=== PATIENT | female | born 1990 | race Caucasian/White ===

== ENCOUNTER 2018-02-05 17:10 | Inpatient (IN) | payer OTHER ==
[~2018-02-05] VITALS: Ht 172.7 cm; Wt 90.3 kg
[2018-02-05 17:18] VITALS: BP 166/104
[2018-02-05] MEDS ORDERED: BIRTH CONTROL PO (17:21)
[2018-02-05] MEDS ORDERED: PROAIR HFA8.5 GM INH (17:21)
[2018-02-05] MEDS ORDERED: AZITHROMYCIN 2250 MG PO (17:21)
[2018-02-05 18:08] LABS: ABSOLUTE LYMPHOCYTES 1.1 thou/uL (0.8-5.3); ABSOLUTE MONOCYTES 0.5 thou/uL (0.0-1.2); ABSOLUTE NEUTROPHILS 6.5 thou/uL (1.6-8.1); BASOPHILS 0.3 %; EOSINOPHILS 0.1 %; HEMATOCRIT 35.8 % (37.0-47.0); HEMOGLOBIN 12.4 gm/dL (12.0-15.0); LYMPHOCYTES 13.5 %; MCH 30.2 pg (26.0-34.0); MCHC 34.7 g/dL (28.0-37.0); MCV 87.3 fL (80.0-100.0); MONOCYTES 5.8 %; MPV 7.6 fl. (7.2-11.1); NUCLEATED RBCS 0 /100WBC; PLATELET COUNT* 305 thou/uL (150-400); POLYS 80.3 %; RDW-CV 12.8 % (10.5-14.5); WBC 8.1 thou/uL (4.0-11.0)
[2018-02-05 18:17] LABS: ANION GAP 11 mmol/L (7-16); BUN 4 mg/dL (7-18); CALCIUM 8.4 mg/dL (8.5-10.1); CHLORIDE 99 mmol/L (98-107); CO2 29 mmol/L (21-32); CREATININE 0.9 mg/dL (0.6-1.3); GLUCOSE 121 mg/dL (70-99); SODIUM 139 mmol/L (136-145)
[2018-02-05 18:24] LABS: ALBUMIN 2.7 g/dL (3.4-5.0); ALKALINE PHOSPHATASE 116 U/L (46-116); SGOT 42 U/L (15-37); SGPT 78 U/L (30-65); TOTAL BILIRUBIN 0.4 mg/dL (<0.1-1.0); TOTAL PROTEIN 7.2 g/dL (6.4-8.2); TROPONIN-I LEVEL <0.06 ng/mL (<0.06)
[2018-02-05 18:25] LABS: POTASSIUM 2.7 mmol/L (3.5-5.1)
[2018-02-05 20:48] LABS: BE 0.4 mmol/L (-2 to +3); HCO3 23.4 mmol/L (22.0-26.0); PCO2 32.3 mmHg (35.0-45.0); pH 7.477 (7.340-7.450)
[2018-02-05 21:00] VITALS: BP 130/81
[2018-02-05 21:08] VITALS: BP 132/81
[2018-02-05 22:00] VITALS: BP 130/85
[2018-02-05 23:00] VITALS: BP 130/86
[2018-02-06] VITALS (18 sets, daily range): BP systolic 118–146; BP diastolic 80–101
[2018-02-06 05:13] LABS: HEMATOCRIT 36.1 % (37.0-47.0); HEMOGLOBIN 12.4 gm/dL (12.0-15.0); MCH 30.1 pg (26.0-34.0); MCHC 34.3 g/dL (28.0-37.0); MCV 87.6 fL (80.0-100.0); MPV 7.5 fl. (7.2-11.1); RBC 4.13 mil/uL (4.20-5.00); RDW-CV 12.7 % (10.5-14.5); WBC 5.7 thou/uL (4.0-11.0)
[2018-02-06 05:24] LABS: ALBUMIN 2.5 g/dL (3.4-5.0); CALCIUM 8.4 mg/dL (8.5-10.1); CREATININE 0.8 mg/dL (0.6-1.3); MAGNESIUM 2.2 mg/dL (1.8-2.4); POTASSIUM 3.8 mmol/L (3.5-5.1); TOTAL BILIRUBIN 0.3 mg/dL (<0.1-1.0); TOTAL PROTEIN 6.9 g/dL (6.4-8.2)
--- NOTE | 2018-02-06 10:32 | EKG ---
[place] [address] ELECTROCARDIOGRAM REPORT Name: HAI SEGUNDO Room: [address] IN [facility].#: [id number] Admission: 02/05/18 Attend Phys: Abisai Worthington MD Discharge: Date of : 86 Report #: [id number] THIS REPORT FOR: //name// [facility] ED Test Date: 2018-02-05 Test Time: 17:34:20 Pat Name: HAI SEGUNDO Department: Room: [facility] Gender: F [employer] Officer: [place] : 1990 Requested By: Joseluis Bynum Order Number: [id number] : Parveen Wong Measurements Intervals [place] Rate: 111 P: 51 NV: 120 QRS: 64 QRSD: 87 T: 8 QT: 329 QTc: 447 Interpretive Statements Sinus tachycardia Borderline T wave abnormalities No previous ECG available for comparison Electronically Signed On 02-06-2018 10:31:56 WOOD FLOORING SPECIALIST by Parveen Wong [email or web address] <ELECTRONICALLY SIGNED> By: Parveen Wong MD, [facility] 02/06/18 1031 1734 173 Parveen Wong MD, FACC /EPI
[2018-02-06 15:15] LABS: URINE BILIRUBIN NEGATIVE (Negative); URINE BLOOD TRACE (Negative); URINE CLARITY CLEAR; URINE COLOR YELLOW; URINE GLUCOSE-RANDOM NEGATIVE (Negative); URINE KETONES NEGATIVE (Negative); URINE LEUKOCYTES-REFLEX NEGATIVE (Negative); URINE NITRITE-REFLEX NEGATIVE (Negative); URINE PROTEIN NEGATIVE (Negative); URINE UROBILINOGEN 0.2 E.U./dl (0.2-1.0)
[2018-02-06 20:45] LABS: CALCIUM 8.8 mg/dL (8.5-10.1); CREATININE 0.8 mg/dL (0.6-1.3)
[2018-02-07] VITALS (12 sets, daily range): BP systolic 130–167; BP diastolic 74–101
[2018-02-07 04:40] LABS: HEMATOCRIT 37.9 % (37.0-47.0); HEMOGLOBIN 12.9 gm/dL (12.0-15.0); MCH 30.7 pg (26.0-34.0); MCHC 34.1 g/dL (28.0-37.0); MPV 8.1 fl. (7.2-11.1); NUCLEATED RBCS 0 /100WBC; PLATELET COUNT* 344 thou/uL (150-400); RBC 4.21 mil/uL (4.20-5.00); RDW-CV 13.3 % (10.5-14.5); WBC 7.6 thou/uL (4.0-11.0)
[2018-02-07 05:18] LABS: ALBUMIN 2.7 g/dL (3.4-5.0); CALCIUM 8.6 mg/dL (8.5-10.1); CREATININE 0.9 mg/dL (0.6-1.3); MAGNESIUM 1.8 mg/dL (1.8-2.4); POTASSIUM 4.1 mmol/L (3.5-5.1); TOTAL BILIRUBIN 0.2 mg/dL (<0.1-1.0); TOTAL PROTEIN 6.7 g/dL (6.4-8.2)
[2018-02-07 06:15] LABS: ABSOLUTE LYMPHOCYTES 0.8 thou/uL (0.8-5.3); ABSOLUTE MONOCYTES 0.2 thou/uL (0.0-1.2); ABSOLUTE NEUTROPHILS 6.6 thou/uL (1.6-8.1); GIANT PLATELETS OCCASIONAL; METAMYELOCYTES 1 %; PLATELET ESTIMATE ADEQUATE
[2018-02-07 06:16] LABS: TOXIC GRANULATION 3+
[2018-02-07 06:17] LABS: POLYCHROMASIA 1+
--- NOTE | 2018-02-07 07:41 | CON ---
[address] [address] CONSULTATION Name: HAI SEGUNDO Room: [address] IN ..#: [id number] Admission: 02/05/18 Attend Phys: Abisia Worthington MD Discharge: Date of : 86 Report #: [id number] THIS REPORT FOR: //name// CC: [facility] physician/PCP Abisai Worthington DATE OF SERVICE: 02/06/2018 PULMONARY CONSULTATION PRIMARY CARE PHYSICIAN: She has no primary care physician. HOSPITALIST: Alessandro Hinds M.D. PATIENT LOCATION: She is admitted to the ICU on 02/05/2018. She is in ICU bed 7. INDICATION FOR CONSULTATION: Viral pneumonia and dyspnea. CLINICAL SUMMARY: The patient is a 28-year-old female, nonsmoker, who has had a 10-day history of cough and cold. Her son has been sick at home. He was seen by his terminal press operator and just finished taken some antibiotics 3-4 days. Supposedly, he had early pneumonia. The patient has been sick for the last 7-10 days with cough. She had a mild sore throat. She denies any myalgias. She did not get a flu shot. She has not had a pneumonia vaccine. The patient was seen in the [facility]gent [facility]. O2 sats were 91% at that time. Supposedly, a chest x-ray showed interstitial infiltrates then. She was seen in the Emergency Room yesterday afternoon because she was more short of breath and wheezing and her sats were 88% at that time. She was placed on 2 liters and a BiPAP. She kept on the BiPAP for 2 hours and then was discontinued off the BiPAP. She is now doing well on 2 liters and is coughing up some [place] sputum. She has not had a fever. She feels like she is getting a better breath. She took inhalers when she was home as a young child for some mild asthma. She has not taken any inhalers recently. She is a nonsmoker. PAST MEDICAL HISTORY: Otherwise, unremarkable. She has been a healthy young female. ALLERGIES: SHE HAS ALLERGIES OR INTOLERANCE TO PENICILLINS. MEDICATIONS: Her outpatient medications included an albuterol inhaler, she was given yesterday and a Zithromax Dameon, she took 2 tablets yesterday. FAMILY HISTORY: Negative for premature cardiopulmonary disease. SOCIAL HISTORY: Nonsmoker, nondrinker. 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 [address] CONSULTATION Name: HAI SEGUNDO Corry Room: [address]#: [id number] Admission: 02/05/18 Attend Phys: Abisai Worthington MD Discharge: Date of : 86 Report #: [id number] 10-year-old son at home. No recent travel or exposure. REVIEW OF SYSTEMS: A 14-point review of systems reviewed and negative, except for pertinent positives noted in the HPI. PHYSICAL EXAMINATION: GENERAL: This is a pleasant 28-year-old female, in no acute distress. She is on 2 liters and can talk to me in sentences. VITAL SIGNS: Currently, her blood pressure is 138/80, her heart rate is 88-96, respirations were 20 and nonlabored and then highest temperature we had was 37.8 degrees when she was admitted to the hospital, which is 100.8 degrees and then now, she is down to 98 degrees. She is 5 feet 9 inches tall, weight is 90 kilograms or 190 pounds. HEENT: Mucous membranes are moist. Pharynx, I do not see any erythema or exudate. NECK: Supple, without any cervical or supraclavicular adenopathy. CHEST: Shows some bibasilar crackles, left greater than right. No wheeze. Mildly prolonged expiratory phase. CARDIOVASCULAR: Regular rate and rhythm, without murmur, gallop or rub. Heart rate is 96. ABDOMEN: Soft, mildly obese, without masses or megaly. EXTREMITIES: No calf tenderness. No cyanosis, clubbing or edema. NEUROLOGIC: Nonfocal and intact. Moves all fours to commands. LABORATORY DATA: Labs from today, from 02/06/2018, hemoglobin is 12.4, white count is 5700, normal differential and platelets are 301,000. Chemistry: Sodium is 142, potassium is 3.8, BUN is 5 with a creatinine of 0.8 and glucose is 182. LFTs within normal limits, except for mildly elevated ALT of 78 and calcium of 8.4. Albumin is 2.5, prealbumin is slightly low at 13.9. Serology is still pending. Flu swab was negative, at least at this time. HIV also was pending. Bedside HIV screen was nonreactive. She had a chest x-ray showing diffuse lower lobe interstitial infiltrates. CT angio of the chest because of mildly elevated D-dimer and the patient had a history of being on oral contraceptive pills, negative for pulmonary emboli and some diffuse lower lobe interstitial and minimal nodular infiltrates. Saturation on 2 liters is 96% at this time. IMPRESSION: Interstitial infiltrates, most likely viral pneumonia "atypical pneumonia". PLAN: We will give a short burst of steroids. She is on cefepime and vancomycin and DuoNeb treatments. We could probably pare that down in a day or two. We will add some oral azithromycin at this time to see how she does with that and again within a day or two, we can probably stop this vancomycin and cefepime. May need to go home on oral antibiotics. We may give a short burst of steroids at this time. Follow up on the chest x-ray [place] [address] CONSULTATION Name: HAI SEGUNDO Room: [address]#: [id number] Admission: 02/05/18 Attend Phys: Abisai Worthington MD Discharge: Date of : 86 Report #: [id number] oral steroids, either Medrol Dameon or prednisone taper at home, for the inflammatory process and viral pneumonia. Her oxygenation seems to be better, trying to get her on room air in 12-24 hours. From pulmonary view, she can probably be transferred out of the ICU in the next 12-24 hours. Thanks again for allowing us to participate in this lady's care. We will follow up along with you. <ELECTRONICALLY SIGNED> By: Lenin Aguiar MD 02/07/18 0741 [id number] Aguiar MD /nt
[2018-02-07 22:06] LABS: MYCOPLASMA PNEUMONIA IgG 3475 U/mL (0-99); MYCOPLASMA PNEUMONIA IgM 3394 U/mL (0-769)
[2018-02-08 08:00] VITALS: BP 138/95
[2018-02-08] MEDS ORDERED: PREDNISONE 10 M10 M1 PO (12:13)
[2018-02-08] MEDS ORDERED: PROTONIX40 M1 PO (12:19)
[2018-02-08] MEDS ORDERED: DUONEB INH (12:22)
[2018-02-08 12:24] VITALS: BP 138/95
[2018-02-08 13:53] VITALS: BP 138/95
[2018-02-10 02:05] LABS: ADENOVIRUS Negative (Negative); INFLUENZA A Negative (Negative); INFLUENZA B Negative (Negative); METAPNEUMOVIRUS Negative (Negative); PARAINFLUENZA 1 Negative (Negative); PARAINFLUENZA 2 Negative (Negative); PARAINFLUENZA 3 Negative (Negative); RHINOVIRUS Negative (Negative); RSV A Negative (Negative); RSV B Negative (Negative)
== END 2018-02-08 13:45 | disposition home or self-care (01) | DRG 871 ==
LOC: M.ERS 17:10 → M.ICU 19:43 → M.TBA-ER 19:43 → M.ICU 20:35 → M.ORTHSURG 02-07 15:57
PROVIDERS: Family Medicine; Internal Medicine Pulmonary Disease; Nurse Practitioner Family; Specialist; ADMIT Internal Medicine
PROC: 5A09357 Assistance with Respiratory Ventilation, Less than 24 Consecutive Hours, Continuous Positive Airway Pressure (ICD-10-PCS; principal; 2018-02-05)
DX: A41.9 Sepsis, unspecified organism (principal); J96.01 Acute respiratory failure with hypoxia; J15.7 Pneumonia due to Mycoplasma pneumoniae; J12.9 Viral pneumonia, unspecified; E87.6 Hypokalemia; J06.9 Acute upper respiratory infection, unspecified; R75 Inconclusive laboratory evidence of human immunodeficiency virus [HIV]; R73.9 Hyperglycemia, unspecified; J45.909 Unspecified asthma, uncomplicated; Z79.2 Long term (current) use of antibiotics; Z79.899 Other long term (current) drug therapy; Z87.891 Personal history of nicotine dependence; Z88.0 Allergy status to penicillin